=== PATIENT | male | born 1995 | race African-American/Black ===

== ENCOUNTER 2017-11-17 00:30 | Emergency (ER) | payer SELFPAY ==
[~2017-11-17] VITALS: Ht 170.2 cm; Wt 72.6 kg
[~2017-11-17 00:30] MED LIST: AMOXIL250 MG/5 M PO; NKM; PROMETHAZINE-C118 M1 ORAL; ZITHROMAX250 MG ORAL
[2017-11-17] MEDS ORDERED: NKM (00:38)
[2017-11-17] MEDS ORDERED: AZITHROMYCIN250 MG ORAL (00:48)
--- NOTE | 2017-11-17 00:48 | Emergency Room Report ---
History of Present Illness General Chief Complaint: General Complaint Source: Patient Present Illness HPI Is a 22-year-old male with no past medical history. He presents with chief complaint of a cough for the last week and a half. Usually dry but now with more mucus in the last few nights having fever and sweats. No nausea no vomiting. No diaphoresis. No Diarrhea. Allergies: Coded Allergies: No Known Allergies (Unverified , 10/31/12) Patient History Past Medical History: see triage record, old chart reviewed Past Surgical History: none Pertinent Family History: none Social History: Denies: smoking Immunizations: other Reviewed Nursing Documentation: PMH: Agreed; PSxH: Agreed Nursing Documentation-PMH Past Medical History: No Stated History Review of Systems Constitutional: Reports: sweats, fever Eye: Denies: eye pain, blurred vision ENT: Denies: ear pain, nose congestion, throat swelling Respiratory: Reports: cough, sputum; Denies: shortness of breath Cardiovascular: Denies: chest pain, palpitations Gastrointestinal: Denies: abdominal pain, diarrhea, nausea, vomiting Musculoskeletal: Denies: back pain, joint pain Skin: Denies: rash Neurological: Denies: headache, numbness Endocrine: Denies: increased thirst, increased urine Hematologic/Lymphatic: Denies: easy bruising All Other Systems: negative except mentioned in HPI Physical Exam Vital Signs Date Time Temp Pulse Resp B/P (MAP) Pulse Ox O2 Delivery O2 Flow Rate FiO2 11/17/17 00:34 98.1 76 16 121/72 98 Room Air 98.1 vitals normal Sp02 EP Interpretation: reviewed, normal General Appearance: well appearing, no apparent distress, alert Head: normocephalic, atraumatic Eyes: bilateral eye PERRL, bilateral eye EOMI ENT: hearing grossly normal, normal pharynx, other - no thrush Neck: full range of motion, supple, no meningismus Respiratory: chest non-tender, lungs clear, normal breath sounds, other - ccoughing with inspiration Cardiovascular #1: regular rate, rhythm, no murmur Gastrointestinal: normal bowel sounds, non tender, no mass, no organomegaly, no bruit, non-distended Musculoskeletal: back normal, gait/station normal, normal range of motion Psychiatric: mood/affect normal Skin: warm/dry Medical Decision Making Diagnostic Impression: Primary Impression: URI, acute Additional Impression: Atypical pneumonia ER Course Patient presents with a cough and fever chills. Because of duration of the symptoms for almost 2 weeks, we'll put on antibiotics to cover for atypical pneumonia. No evidence any sepsis, ACS, PE to name a few. Last Vital Signs Date Time Temp Pulse Resp B/P (MAP) Pulse Ox O2 Delivery O2 Flow Rate FiO2 11/17/17 00:34 98.1 76 16 121/72 98 Room Air 98.1 Status: improved Disposition: HOME, SELF-CARE Condition: Stable Scripts Azithromycin* (ZITHROMAX*) 250 Mg Tablet 250 MG ORAL DAILY, #6 TAB 0 Refills Take two tablets by mouth today, then take one tablet by mouth daily for four days Prov: MOLLY ISBELL M.D. 11/17/17 Referrals: NOT CHOSEN [facility]/,REFERRING (PCP) Additional Instructions: follow-up with your DrSoheila in 3-5 days. Return if symptom worsen. MOLLY ISBELL M.D. Nov 17, 2017 00:48
[2017-11-17 00:51] VITALS: BP 121/72
== END 2017-11-17 00:58 | disposition home or self-care (01) ==
LOC: EMR 00:42
DX: J18.9 Pneumonia, unspecified organism (principal); J06.9 Acute upper respiratory infection, unspecified
CPT/HCPCS: 99283

== ENCOUNTER 2017-11-22 09:38 | Emergency (ER) | payer SELFPAY ==
[~2017-11-22] VITALS: Ht 172.7 cm; Wt 72.6 kg
[~2017-11-22 09:38] MED LIST changes: +AZITHROMYCIN250 MG ORAL
[2017-11-22 09:58] VITALS: BP 116/78
--- NOTE | 2017-11-22 10:24 | Emergency Room Report ---
History of Present Illness General Chief Complaint: Upper Respiratory Illness Source: Patient Present Illness HPI The patient states that he has had cough and rhinorrhea for the past 2-1/2 weeks. He was seen 6 days ago and diagnosed with "atypical pneumonia." He finished a course of azithromycin. He states he continues to have a cough. He has mild fatigue. He states he is 80-90% of his normal energy level. He denies sputum production. He denies chest pain or abdominal pain. He denies fever or chills. He has no other complaints. Allergies: Coded Allergies: No Known Allergies (Unverified , 10/31/12) Patient History Past Medical History: none Social History: Denies: smoking, alcohol use, drug use Reviewed Nursing Documentation: PMH: Agreed; PSxH: Agreed Review of Systems All Other Systems: negative except mentioned in HPI Physical Exam Vital Signs Date Time Temp Pulse Resp B/P (MAP) Pulse Ox O2 Delivery O2 Flow Rate FiO2 11/22/17 09:49 97.9 86 17 116/78 95 Room Air 97.9 Sp02 EP Interpretation: reviewed, normal General Appearance: no apparent distress, alert, GCS 15, non-toxic Head: normocephalic, atraumatic Eyes: bilateral eye normal inspection, bilateral eye PERRL ENT: hearing grossly normal, normal pharynx, no angioedema, normal voice Neck: full range of motion, supple/symm/no masses Respiratory: chest non-tender, lungs clear, normal breath sounds, no respiratory distress, no retraction, no accessory muscle use, speaking full sentences Cardiovascular #1: regular rate, rhythm, no edema Rectal: deferred Musculoskeletal: back normal, gait/station normal, normal range of motion Neurologic: alert, oriented x3, responsive, motor strength/tone normal, sensory intact, speech normal Psychiatric: judgement/insight normal, memory normal, mood/affect normal, no suicidal/homicidal ideation Skin: normal color, no rash, warm/dry, well hydrated Medical Decision Making Diagnostic Impression: Primary Impression: Upper respiratory infection ER Course This patient has a clinical presentation with upper respiratory tract infection. The evaluation was very reassuring with a normal lung exam, no respiratory distress, normal pulse oximetry. I am not concerned for pneumonia in this patient. Chest x-ray was unremarkable. This is most likely viral and will not need antibiotic therapy. The patient was instructed on supportive care. No emergency medical condition was identified. Chest X-Ray Diagnostic Results Chest X-Ray Diagnostic Results : Chest X-Ray Ordered: Yes # of Views/Limited/Complete: 1 View Indication: Other - cough EP Interpretation: Yes Interpretation: no consolidation, no effusion, no pneumothorax, no acute cardiopulmonary disease Impression: No acute disease Electronically Signed by: Latisha Last Vital Signs Date Time Temp Pulse Resp B/P (MAP) Pulse Ox O2 Delivery O2 Flow Rate FiO2 11/22/17 09:58 97.9 86 17 116/78 95 Room Air 97.9 Disposition: HOME, SELF-CARE Condition: Improved Referrals: NOT CHOSEN [facility]/,REFERRING (PCP) Departure Forms: Return to Work Return to Work in (Days): 2 Return to Work Date: Nov 24, 2017 Work Restrictions: None Patient Instructions: Upper Respiratory Infection, Adult ZORAIDA RUSH D.O. Nov 22, 2017 10:24
[2017-11-22 10:43] VITALS: BP 116/78
--- NOTE | 2017-11-22 10:52 | Diagnostic Imaging Report ---
Indication: Cough Technique: XRAY Chest 1v Comparison: None Findings: Heart size and mediastinal contours are within normal limits given technique. There is no focal consolidation, pneumothorax or pleural effusion. There is mild eventration of the right hemidiaphragm. Osseous structures demonstrate no acute abnormality. IMPRESSION: No radiographic evidence of acute cardiopulmonary disease.
== END 2017-11-22 10:43 | disposition home or self-care (01) ==
LOC: EMR 10:02
DX: J06.9 Acute upper respiratory infection, unspecified (principal)
CPT/HCPCS: 71045; 99283